=== PATIENT | male | born 1980 | race Caucasian/White ===

== ENCOUNTER 2016-05-31 17:53 | Emergency (ER) | payer SELFPAY ==
[~2016-05-31] VITALS: Ht 177.8 cm; Wt 83.9 kg
[2016-05-31 18:16] VITALS: BP 134/70
--- NOTE | 2016-05-31 20:36 | NUR ---
PT TAKEN TO [facility]
--- NOTE | 2016-05-31 20:43 | NUR ---
36Y/M PATIENT PRESENTS TO ED WITH C/O THROAT PAIN X 3 HRS . PT STATES HARD TACO SHELL GOT STUCK IN THROAT. C/O THROAT IRRITATION AND BLOOD IN SPIT . DENIES N/V/D; SKIN IS PINK/WARM/DRY; AAOX4 WITH EVEN AND STEADY GAIT; LUNGS CLEAR BL; HR EVEN AND REGULAR; PT DENIES ANY FEVER, CP, SOB, OR COUGH AT THIS TIME; PATIENT STATES PAIN OF 1/10 AT THIS TIME; VSS; PATIENT POSITIONED FOR COMFORT; HOB ELEVATED; BEDRAILS UP X2; BED DOWN. ER MD MADE AWARE OF PT STATUS.
--- NOTE | 2016-05-31 21:02 | NUR ---
Dr. Raza evaluating patient
[2016-05-31 21:22] VITALS: BP 130/71
--- NOTE | 2016-05-31 21:23 | NUR ---
Patient discharged with v/s stable. Written and verbal after care instructions given and explained. Patient verbalized understanding. Ambulatory with steady gait. All questions addressed prior to discharge. Advised to follow up with PMD.
== END 2016-05-31 21:23 | disposition home or self-care (01) ==
LOC: MED 17:53
DX: T18.128A Food in esophagus causing other injury, initial encounter (principal); S27.818A Other injury of esophagus (thoracic part), initial encounter; W45.8XXA Other foreign body or object entering through skin, initial encounter; Y93.89 Activity, other specified; Y92.89 Other specified places as the place of occurrence of the external cause; Y99.8 Other external cause status